=== PATIENT | male | born 1990 | race Caucasian/White ===

== ENCOUNTER 2023-04-13 14:45 | Emergency (ER) | payer OTHER ==
[2023-04-13 14:55] VITALS: RESP 18; BMI 40.4
[2023-04-13 16:42] LABS: BASO % 1.3 % (0-2.0); EOS % 2.9 % (0-4.5); HEMATOCRIT 44.5 % (35.4-49); HEMOGLOBIN 15.3 GM/dL (11.7-16.9); LYMPH % 28.2 % (8-40); MCH 28.1 pg (25.7-33.7); MCHC 34.3 g/dl (32.0-35.9); MEAN PLT VOLUME 7.3 fl (7.5-11.1); MONO % 5.6 % (3.8-10.2); PLATELET COUNT 355 10^3/uL (134-434); RBC 5.43 M/mm3 (4.00-5.60); RDW 13.8 % (11.9-15.9); WHITE BLOOD COUNT 15.9 K/mm3 (4.0-10.0)
[2023-04-13 16:53] LABS: INR 0.91 (0.83-1.09); PROTHROMBIN TIME (PATIENT) 10.6 SEC (9.7-13.0)
[2023-04-13 16:55] LABS: ACTIVATED PTT 31.1 SECONDS (25.2-36.5)
[2023-04-13 16:58] LABS: POTASSIUM 4.1 mmol/L (3.5-5.1)
[2023-04-13 16:59] LABS: CALCIUM 9.4 mg/dL (8.5-10.1)
[2023-04-13 17:00] LABS: ALBUMIN 3.6 g/dl (3.4-5.0); BLOOD UREA NITROGEN 11.1 mg/dL (7-18)
[2023-04-13 17:04] LABS: BILIRUBIN,TOTAL 0.2 mg/dL (0.2-1)
[2023-04-13 17:05] LABS: TOT PROT 8.1 g/dl (6.4-8.2)
[2023-04-13 17:25] LABS: CREATININE 0.9 mg/dL (0.55-1.3)
[2023-04-13] MEDS ORDERED: ACETAMINOPHEN 500 MG TABLET (FP) PO ONE (18:13)
[2023-04-13 18:32] VITALS: BP 127/88; PULSE 103; TEMP 98.1
== END 2023-04-13 19:03 | disposition home or self-care (01) ==
LOC: JER 14:45
DX: R21 Rash and other nonspecific skin eruption (principal); L29.9 Pruritus, unspecified
CPT/HCPCS: 36415; 80053; 85025; 85610; 85730; 99283-25